=== PATIENT | female | born 1970 | race Caucasian/White ===

== ENCOUNTER 2021-05-16 20:59 | Emergency (ER) | payer BC, MEDICAID ==
[~2021-05-16] VITALS: Ht 162.6 cm; Wt 77.1 kg
[2021-05-16 23:07] VITALS: BP 147/88
[2021-05-17] MEDS ORDERED: TETANUS-DIPTH-ACEL PERTUSSIS 0.5ML SYR Tdap IM ONE (01:15)
== END 2021-05-17 02:22 | disposition home or self-care (01) ==
LOC: ER 21:01
DX: S21.119A Laceration without foreign body of unspecified front wall of thorax without penetration into thoracic cavity, initial encounter (principal); Z88.1 Allergy status to other antibiotic agents; W25.XXXA Contact with sharp glass, initial encounter; Y93.89 Activity, other specified; Y92.89 Other specified places as the place of occurrence of the external cause; Y99.8 Other external cause status
CPT/HCPCS: 12002; 71046; 90471; 90715